=== PATIENT | female | born 1965 | race Caucasian/White ===

== ENCOUNTER 2021-12-14 10:08 | Emergency (ER) | payer BC ==
[~2021-12-14] VITALS: Ht 160 cm; Wt 67.1 kg
[2021-12-14] MEDS ORDERED: CLIN300C12 PO (10:32)
[2021-12-14] MEDS ORDERED: HYDR-3974 PO (10:32)
[2021-12-14] MEDS ORDERED: MORPHINE SULFATE 4 MG/1 ML DISP.SYRIN ONE (10:38)
[2021-12-14] MEDS ORDERED: ONDANSETRON ODT 4 MG TAB.RAPDIS ONE (10:40)
[2021-12-14] MEDS ORDERED: MORPHINE SULFATE 4 MG/1 ML DISP.SYRIN IM ONE (10:45)
--- NOTE | 2021-12-14 10:53 | NUR ---
Gave pt d/c instructions, pt verbalized understanding.
[2021-12-14] MEDS ORDERED: ONDANSETRON ODT 4 MG TAB.RAPDIS SL ONE (11:15)
== END 2021-12-14 11:12 | disposition home or self-care (01) ==
LOC: ER 10:08
DX: R51.9 Headache, unspecified (principal); K04.7 Periapical abscess without sinus; Z88.0 Allergy status to penicillin; Z86.69 Personal history of other diseases of the nervous system and sense organs; Z20.822 Contact with and (suspected) exposure to COVID-19
CPT/HCPCS: 99283; 96372; U0003; C9803; J2270; 36415; A4663; Q0162